=== PATIENT | male | born 1985 ===

== ENCOUNTER 2017-08-31 01:33 | Emergency (ER) | payer OTHER ==
[2017-08-31 01:47] VITALS: O2SAT 98
--- NOTE | 2017-08-31 03:54 | C.PDOC ---
History Of Present Illness 31 year old male stating he is homeless and feels like his legs are tired and swollen. Patient is requesting a place to rest for the night, he also notes having a mild cough but states he it's "getting better". Denies other complaints at this time. Time Seen by Provider: 08/31/17 01:58 Chief Complaint (Nursing): Cough, Cold, Congestion History Per: Patient History/Exam Limitations: no limitations Onset/Duration Of Symptoms: Hrs Current Symptoms Are (Timing): Still Present Recent travel outside of the [place] States: No Past Medical History Reviewed: Historical Data, Nursing Documentation, Vital Signs Vital Signs: Last Vital Signs Temp 98.2 F 08/31/17 04:00 Pulse 81 08/31/17 04:00 Resp 16 08/31/17 04:00 BP 132/80 08/31/17 04:00 Pulse Ox 98 08/31/17 04:07 - Medical History PMH: Anxiety, Depression Surgical History: No Surg Hx Family History: States: Unknown Family Hx - Social History Hx Alcohol Use: No Hx Substance Use: No - Immunization History Hx Tetanus Toxoid Vaccination: No Hx Influenza Vaccination: No Hx Pneumococcal Vaccination: No Review Of Systems Constitutional: Negative for: Fever, Chills Respiratory: Positive for: Cough (mild) Neurological: Negative for: Weakness, Numbness Physical Exam - Physical Exam Appears: Non-toxic, No Acute Distress Skin: Normal Color, Warm, Dry Head: Atraumatic, Normacephalic Eye(s): bilateral: Normal Inspection Oral Mucosa: Moist Chest: Symmetrical, No Tenderness Cardiovascular: Rhythm Regular Respiratory: Normal Breath Sounds, No Rales, No Rhonchi, No Wheezing Gastrointestinal/Abdominal: Soft, No Tenderness Extremity: Pedal Edema (no erythema), Other (feet and ankles not visualized- pt refused to remove his boots) Extremity: Bilateral: Atraumatic Neurological/Psych: Oriented x3, Normal Speech Gait: Steady ED Course And Treatment O2 Sat by Pulse Oximetry: 98 (Room air) Pulse Ox Interpretation: Normal Progress Note: Patient is resting comfortably in no acute distress, will discharge at sunrise. On reassessment pt is awake , AAOx 3 an in no apparent distress. Pt is fully ambulatory with steady gait. 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 - Scribe Statement The provider has reviewed the documentation as recorded by the Scribe Kevin Serra All medical record entries made by the Cucaibe were at my direction and personally dictated by me. I have reviewed the chart and agree that the record accurately reflects my personal performance of the history, physical exam, medical decision making, and the department course for this patient. I have also personally directed, reviewed, and agree with the discharge instructions and disposition.
[2017-08-31 05:07] VITALS: BP 132/80; PULSE 81; RESP 16; TEMP 98.2
== END 2017-08-31 05:38 | disposition home or self-care (01) ==
LOC: SUPCPDRO 01:33 → C.ER 01:33
DX: Z04.8 Encounter for examination and observation for other specified reasons (principal)

== ENCOUNTER 2017-09-09 03:20 | Emergency (ER) | payer OTHER ==
[2017-09-09 03:34] VITALS: O2SAT 100
[2017-09-09 04:30] VITALS: RESP 18
--- NOTE | 2017-09-09 04:48 | C.PDOC ---
History Of Present Illness 31 year old male with PMHx of anxiety, depression, anger, mood swings presents to the ED c/o B/L knee and foot pain. Patient states he is currently homeless and his knees and feet hurt from walking all day. Patient reports he is currently going to a behavioral clinic in [place]. Patient denies weakness, numbness, injury, trauma, fall, CP, SOB, abdominal pain. Time Seen by Provider: 09/09/17 03:41 Chief Complaint (Nursing): Lower Extremity Problem/Injury History Per: Patient History/Exam Limitations: no limitations Onset/Duration Of Symptoms: Hrs Current Symptoms Are (Timing): Still Present Recent travel outside of the [place] States: No Additional History Per: Patient Past Medical History Reviewed: Historical Data, Nursing Documentation, Vital Signs Vital Signs: Last Vital Signs Temp 97.5 F L 09/09/17 06:30 Pulse 78 09/09/17 06:30 Resp 18 09/09/17 06:30 BP 126/78 09/09/17 06:30 Pulse Ox 100 09/09/17 06:30 - Medical History PMH: Anxiety, Depression Surgical History: No Surg Hx Family History: States: Unknown Family Hx - Social History Hx Alcohol Use: No Hx Substance Use: No - Immunization History Hx Tetanus Toxoid Vaccination: No Hx Influenza Vaccination: No Hx Pneumococcal Vaccination: No Review Of Systems Constitutional: Negative for: Fever, Chills Cardiovascular: Negative for: Chest Pain Respiratory: Negative for: Cough, Shortness of Breath Gastrointestinal: Negative for: Nausea, Vomiting, Abdominal Pain Musculoskeletal: Positive for: Leg Pain (B/L knee pain), Foot Pain (B/L) Skin: Negative for: Rash Neurological: Negative for: Weakness, Numbness Physical Exam - Physical Exam Appears: Non-toxic, No Acute Distress Skin: Normal Color, Warm, Dry Head: Atraumatic, Normacephalic Nose: No Discharge Oral Mucosa: Moist Neck: Normal ROM, Supple Chest: Symmetrical Cardiovascular: Rhythm Regular, No Murmur Respiratory: Normal Breath Sounds, No Rales, No Rhonchi, No Wheezing Gastrointestinal/Abdominal: Soft, No Tenderness Extremity: Normal ROM, No Pedal Edema, No Calf Tenderness, No Deformity, No Swelling Neurological/Psych: Oriented x3, Normal Speech, Normal Cognition Gait: Steady ED Course And Treatment O2 Sat by Pulse Oximetry: 100 (On RA) Pulse Ox Interpretation: Normal Disposition - Disposition Referrals: [facility] at [facility] [place] [Outside] [facility] at [facility] [Outside] [facility] [place] [Outside] Disposition: HOME/ ROUTINE Disposition Time: 10:00 Condition: STABLE Additional Instructions: return to ED if symtpoms worsen Forms: [facility] (Beninese) - Clinical Impression Clinical Impression: Depression - Scribe Statement The provider has reviewed the documentation as recorded by the Scribe Bakari Prasad All medical record entries made by the Scribe were at my direction and personally dictated by me. I have reviewed the chart and agree that the record accurately reflects my personal performance of the history, physical exam, medical decision making, and the department course for this patient. I have also personally directed, reviewed, and agree with the discharge instructions and disposition.
[2017-09-09 06:31] VITALS: BP 126/78; PULSE 78; TEMP 97.5
== END 2017-09-09 06:31 | disposition home or self-care (01) ==
LOC: C.ER 03:20
DX: F32.9 Major depressive disorder, single episode, unspecified (principal); Z59.0 Homelessness

== ENCOUNTER 2017-09-16 19:46 | Emergency (ER) | payer OTHER ==
[2017-09-16 19:57] VITALS: BP 126/79; PULSE 86; RESP 18; TEMP 97.4; O2SAT 96
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
--- NOTE | 2017-09-20 14:25 | CARD ---
APPROVED REPORT EKG Measurement Heart [id number] <Conclusion> Normal sinus rhythm Normal ECG
== END 2017-09-16 20:49 | disposition home or self-care (01) ==
LOC: C.ER 19:46
DX: F12.10 Cannabis abuse, uncomplicated (principal); R07.89 Other chest pain; Z59.0 Homelessness